=== PATIENT | female | born 1950 | race Hispanic/Latino ===

== ENCOUNTER → 2017-12-05 | Outpatient (CLI) | payer OTHER ==
[~2017-12-05] MED LIST: AMLO5TAB7 PO; ASPI-555 PO; ATEN100T PO; CLOP75TA32 PO; LOSA100T20 PO; METF-444 PO; PRAV40TA3 PO
== END | disposition home or self-care (01) ==
LOC: SHCH 14:37
PROVIDERS: ATTEND Internal Medicine Cardiovascular Disease
DX: I73.9 Peripheral vascular disease, unspecified (principal); R09.89 Other specified symptoms and signs involving the circulatory and respiratory systems; E11.9 Type 2 diabetes mellitus without complications; Z72.89 Other problems related to lifestyle
CPT/HCPCS: 93880; 93925

== ENCOUNTER → 2018-12-07 | Outpatient (CLI) | payer OTHER ==
[~2018-12-07] MED LIST changes: -AMLO5TAB7 PO; +AMLO5TAB9 PO; -LOSA100T20 PO; +LOSA100T58 PO
== END | disposition home or self-care (01) ==
LOC: SHCH 09:32
PROVIDERS: ATTEND Internal Medicine Cardiovascular Disease
DX: I87.2 Venous insufficiency (chronic) (peripheral) (principal)
CPT/HCPCS: 93925; 93970

== ENCOUNTER → 2022-01-12 | Outpatient (CLI) | payer MEDICARE ==
[~2022-01-12] MED LIST changes: +AMLO-257 PO; -AMLO5TAB9 PO; -ASPI-555 PO; +ASPI-556 PO
== END | disposition home or self-care (01) ==
LOC: SHCH 12:36
PROVIDERS: ATTEND Internal Medicine Cardiovascular Disease
DX: I87.2 Venous insufficiency (chronic) (peripheral) (principal); I73.9 Peripheral vascular disease, unspecified
CPT/HCPCS: 93925; 93970

== ENCOUNTER → 2022-11-29 | Outpatient (CLI) | payer MEDICARE ==
[~2022-11-29] MED LIST changes: -LOSA100T58 PO; +LOSA100T59 PO
== END | disposition home or self-care (01) ==
LOC: SHCH 08:16
PROVIDERS: ATTEND Internal Medicine Cardiovascular Disease
DX: I11.9 Hypertensive heart disease without heart failure (principal); R00.2 Palpitations; E11.9 Type 2 diabetes mellitus without complications; E78.5 Hyperlipidemia, unspecified; F17.200 Nicotine dependence, unspecified, uncomplicated
CPT/HCPCS: 93306

== ENCOUNTER 2023-12-10 22:34 | Emergency (ER) | payer MEDICARE ==
[~2023-12-10] VITALS: Ht 157.5 cm; Wt 67.1 kg
[2023-12-10 22:51] LABS: BASOPHILS # (AUTO) 0.09 K/uL (0.00-0.20); BASOPHILS % (AUTO) 1.1 % (0.0-5.0); EOSINOPHILS # (AUTO) 0.21 K/uL (0.00-0.70); EOSINOPHILS % (AUTO) 2.5 % (0.0-8.0); HEMATOCRIT 43.7 % (36-48); IMMATURE GRANULOCYTE ABSOLUTE 0.04 K/uL (0-1); LYMPHOCYTES # (AUTO) 3.3 K/uL (1.0-4.8); LYMPHOCYTES % (AUTO) 38.6 % (21.0-51.0); MEAN CORPUSCULAR HEMOGLOBIN 29.6 pg (27.0-33.0); MEAN CORPUSCULAR HGB CONC 33.6 g/dL (32.0-36.0); MEAN CORPUSCULAR VOLUME 87.9 fL (79-99); MONOCYTES # (AUTO) 0.8 K/uL (0.1-1.0); MONOCYTES % (AUTO) 8.9 % (3.0-13.0); NEUTROPHILS # (AUTO) 4.1 K/uL (1.8-7.7); NEUTROPHILS % (AUTO) 48.4 % (40.0-77.0); PLATELET COUNT (AUTO) 298 K/uL (130-400); RED BLOOD CELL COUNT(AUTO) 4.97 MIL/uL (4.00-5.50); RED CELL DISTRIBUTION WIDTH 11.9 % (11.0-15.5); WHITE BLOOD COUNT (AUTO) 8.4 K/uL (4.8-10.8)
[2023-12-10 23:03] LABS: CREATININE 1.2 mg/dL (0.5-1.0); POTASSIUM 3.7 mmol/L (3.5-5.1); PROTHROMBIN TIME 10.8 SEC (9.6-11.6)
[2023-12-10 23:05] LABS: PARTIAL THROMBOPLASTIN TIME 25.6 SEC (26.3-35.5)
[2023-12-10] MEDS: MAG/ALUM/SIMETH 30 ML UDCUP PO ONE (23:11)
[2023-12-10] MEDS: DICYCLOMINE HCL 10 MG/5 ML ML PO ONE (23:11)
[2023-12-10 23:17] LABS: B-TYPE NATRIURETIC PEPTIDE 50 pg/mL (0-100)
[2023-12-10 23:21] LABS: ALBUMIN 3.7 g/dL (3.5-5.0); BILIRUBIN,DIRECT 0.1 mg/dL (0.0-0.3); BILIRUBIN,TOTAL 0.3 mg/dL (0.2-1.0); TOTAL PROTEIN, SERUM 7.6 g/dL (6.0-8.3)
[2023-12-10 23:50] LABS: ADD UA MICROSCOPIC YES; APPEARANCE,URINE CLEAR (CLEAR); BILIRUBIN,URINE NEGATIVE (NEGATIVE); COLOR,URINE COLORLESS (YELLOW); GLUCOSE, URINE (UA) >=1000 mg/dL (NEGATIVE); KETONES,URINE NEGATIVE (NEGATIVE); LEUKOCYTE ESTERASE ,URINE 250 Leu/uL (NEGATIVE); NITRATE,URINE NEGATIVE (NEGATIVE); PH,URINE 6.5 (5.0-8.0); PROTEIN,URINE NEGATIVE (NEGATIVE); UROBILINOGEN,URINE 0.2 mg/dL (0.2-1.0)
[2023-12-10 23:51] LABS: BACTERIA,URINE FEW /HPF (None Seen); MUCUS,URINE RARE LPF (None Seen); SQUAMOUS EPITHELIAL CELL,UR RARE /HPF (0-2)
[2023-12-10] MEDS ORDERED: IOHEXOL-350 75 ML VIAL IV ONE (23:53)
[2023-12-11] MEDS ORDERED: FAMO20TA8 PO (01:33)
[2023-12-11 01:40] VITALS: BP 135/68; PULSE 66; RESP 20; TEMP 97.5; O2SAT 96
== END 2023-12-11 01:42 | disposition home or self-care (01) ==
LOC: EDH 22:34
DX: R10.13 Epigastric pain (principal); E11.9 Type 2 diabetes mellitus without complications; I10 Essential (primary) hypertension; E78.5 Hyperlipidemia, unspecified; Z79.82 Long term (current) use of aspirin; Z79.84 Long term (current) use of oral hypoglycemic drugs; Z79.899 Other long term (current) drug therapy; Z95.5 Presence of coronary angioplasty implant and graft; Z98.890 Other specified postprocedural states
CPT/HCPCS: 99285; 74177; 71045; 82550; 80076; 84484 ×3; 80048; 83880; 83690; 85025; 85610; 85730; 87086; 81001; 36415; 93005; Q9967

== ENCOUNTER 2024-02-28 06:29 | Observation (INO) | payer MEDICARE ==
--- NOTE | 2024-02-24 09:03 | EKG ---
[facility] Test Date: 2024-02-24 Test Time: 09:33:04 Pat Name: BERNIE WOOD Department: [facility] Room: Gender: F Training And Development Professional: [id number] : 1950 Requested By: REBECCA MILLER Order Number: [id number] Reading MD: Parish De La Rosa Measurements Intervals [place] Rate: 58 P: 33 [place]: 153 QRS: 30 QRSD: 96 T: -61 QT: 448 QTc: 442 Interpretive Statements Sinus rhythm Atrial premature complex Inferior infarct, age indeterminate Nonspecific STT abnormality Compared to ECG 12/26/2023 07:21:53 Atrial premature complex(es) now present Junctional rhythm no longer present ST (T wave) deviation no longer present Myocardial infarct finding still present Electronically Signed On 02-25-2024 07:59:21 SENIOR ERP CONSULTANT by Parish De La Rosa Please click the below link to view image of tracing.
[2024-02-24 09:04] LABS: BASOPHILS # (AUTO) 0.08 K/uL (0.00-0.20); BASOPHILS % (AUTO) 1.3 % (0.0-5.0); EOSINOPHILS # (AUTO) 0.17 K/uL (0.00-0.70); EOSINOPHILS % (AUTO) 2.7 % (0.0-8.0); HEMATOCRIT 41.5 % (36-48); IMMATURE GRANULOCYTE ABSOLUTE 0.02 K/uL (0-1); LYMPHOCYTES # (AUTO) 1.5 K/uL (1.0-4.8); LYMPHOCYTES % (AUTO) 23.8 % (21.0-51.0); MEAN CORPUSCULAR VOLUME 87.4 fL (79-99); MONOCYTES # (AUTO) 0.5 K/uL (0.1-1.0); MONOCYTES % (AUTO) 7.4 % (3.0-13.0); NEUTROPHILS # (AUTO) 4.1 K/uL (1.8-7.7); NEUTROPHILS % (AUTO) 64.5 % (40.0-77.0); PLATELET COUNT (AUTO) 343 K/uL (130-400); RED BLOOD CELL COUNT(AUTO) 4.75 MIL/uL (4.00-5.50); RED CELL DISTRIBUTION WIDTH 12.6 % (11.0-15.5); WHITE BLOOD COUNT (AUTO) 6.4 K/uL (4.8-10.8)
[2024-02-24 09:15] LABS: INR 0.96 (0.85-1.15); PROTHROMBIN TIME 10.8 SEC (9.6-11.6)
[2024-02-24 09:17] LABS: PARTIAL THROMBOPLASTIN TIME 25.9 SEC (26.3-35.5)
[2024-02-24 09:19] LABS: ALBUMIN 3.4 g/dL (3.5-5.0); BILIRUBIN,TOTAL 0.2 mg/dL (0.2-1.0); CREATININE 0.9 mg/dL (0.5-1.0); POTASSIUM 4.1 mmol/L (3.5-5.1)
[2024-02-24 09:22] VITALS: BP 139/53; PULSE 59; RESP 14; TEMP 97.2
--- NOTE | 2024-02-24 11:06 | HMCIMG ---
CHEST 1VW REASON: PRE OP COMPARISON: 12/25/2023 FINDINGS: Single view of the chest was obtained. Lungs are clear. Heart size is normal. There is no pulmonary vascular congestion. Mediastinum and bony thorax appear unremarkable. IMPRESSION: 1. Normal single view chest x-ray.
[2024-02-28] VITALS (8 sets, daily range): BP systolic 118–151; BP diastolic 48–62; PULSE 45–59; RESP 14–18; TEMP 97.3–98.1; O2SAT 92–96
[~2024-02-28] VITALS: Ht 154.9 cm; Wt 66.3 kg
[~2024-02-28 06:29] MED LIST changes: +ACET-2743 PO; -AMLO-257 PO; +AMLO-258 PO; -ATEN100T PO; +ATEN50TA PO; +EMPA10TA PO; +FENO145T26 PO; +Isosorbide Mono 30MG Sr Tab PO; -METF-444 PO; +METF-445 PO; +NITR0.4T50 SL
[2024-02-28] MEDS: 0.9%NACL 1000ML 1,000 ML IV SCH ×2 (12:20→17:00)
[2024-02-28] MEDS ORDERED: LIDOCAINE HCL 400MG/20ML VIAL ONE (14:08)
[2024-02-28] MEDS ORDERED: HEParin 10,000 UNIT/10ML (1,000 UNIT/ML) VIAL ONE (14:08)
[2024-02-28] MEDS ORDERED: IOHEXOL 350 MG/ML 100ML INFUS..BTL IV ONE (14:08)
[2024-02-28] MEDS ORDERED: HEParin-NS 1,000 UNIT/500 ML 1,000 ML IV ONE (14:08)
[2024-02-28] MEDS ORDERED: BIVALIRUDIN 250 MG/VIAL IV ONE (14:08)
[2024-02-28] MEDS ORDERED: NITROGLYCERIN 50MG VIAL ONE (14:09)
[2024-02-28] MEDS ORDERED: FENTanyl CITRate PF 50 MCG/1 ML 2ML VIAL ONE (14:24)
[2024-02-28] MEDS ORDERED: MIDAZOLAM HCL 1 MG/ML 2ML VIAL ONE (14:24)
[2024-02-28] MEDS ORDERED: ATROPINE 1MG SYG IVP ONE (15:03)
[2024-02-28] MEDS ORDERED: morPHINE 4 MG SYG ONE (15:19)
--- NOTE | 2024-02-28 16:15 | PRN ---
PROCEDURES: 1. Right common femoral arterial sheath placement. 2. Selective coronary angiogram. Three. Angioplasty to obtuse marginal branch three with a 2.5 mm x 15 mm balloon 4. Lithotripsy angioplasty to obtuse marginal branch three with the use of a 2.5 mm x 12 mm balloon up to four treatments at four atmospheres Five. Lithotripsy angioplasty to proximal mid left circumflex with a 2.5 mm x 12 mm lithotripsy balloon x4 treatments Six. Angioplasty only to interventricular groove with a 2.5 mm x 15 mm balloon to 2.5 mm Seven. 2.5 mm x 22 mm stent placement to distal left circumflex extending into obtuse marginal branch 3. Deployed to 2.5 mm Eight. 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 IV was started, and not already in place and both groins were exposed for arterial access. 1% lidocaine was used for local anesthesia and then a micropuncture kit was used to gain access once free-flowing blood was seen, modified Seldinger technique was utilized to place a 6 Cypriot sheath into the right common femoral artery. Next a six Cypriot Jose 3.5 guide catheter was placed in the left main artery and initially a choice PT extra-support wire was placed in the distal ongoing obtuse marginal branch 3. And then a 0.014 in runthrough wire was placed in the distal ongoing interventricular groove left circumflex. Next a 2.5 mm x 15 mm balloon was then placed into the distal left circumflex and interventricular groove portion employed to 2.5 mm for approximately 1 minute with 95% stenosis being less than 20%. TRUDY three flow was noted. Next at Saint balloon was then used to prepare obtuse marginal branch three and distal left circumflex for lithotripsy and was advanced to obtuse marginal branch 3. Deployed to 2.5 by mm. Brought back in overlapping fashion to the ostium and proximal portion of left obtuse marginal branch three and into the distal portion of left circumflex and deployed. Next a lithotripsy balloon was then placed into the ostium and proximal portion of obtuse marginal branch 3. And deployed for a total of four treatments at four atmospheres. This was then brought back to the proximal mid and distal left circumflex and deployed for four more treatments. Next a GuideLiner was used for support and a 2.5 mm x 22 mm Medtronic resolute allyson stent was then placed into obtuse marginal branch 3. In the proximal and mid segment and the distal portion of the left circumflex. This was deployed to 2.55 mm. Next a 2.75 mm x 22 mm resolute allyson stent was placed in an overlapping fashion with the previously placed stent and deployed to 2.80 mm out to the ostium. Follow-up contrast injection was performed revealing no evidence of dissection or perforation with TRUDY three flow noted. At end of case Vascade was used for closure of arteriotomy site and no complications occurred. RECOMMENDATIONS: Patient will stay in the hospital overnight for IV hydration Reinitiate home medications Placed in PCCU Plan for DC in REBECCA Roberts MD Feb 28, 2024 16:15
[2024-02-28] MEDS ORDERED: ASPIRIN 325MG EC TAB PO ONE (16:19)
[2024-02-28] MEDS: INSULIN humuLIN R 100 UNIT/ML 3ML SQ SCH (16:30)
[2024-02-28] MEDS ORDERED: NITROGLYCERIN 0.4 MG SL TAB SL PRN (16:30)
[2024-02-28] MEDS ORDERED: DEXTROSE 50%-WATER 50 ML DISP.SYRIN IV PRN (16:30)
[2024-02-28] MEDS ORDERED: GLUCAGON 1MG KIT 1 MG ML IM PRN (16:30)
--- NOTE | 2024-02-28 22:51 | NUR ---
[id number] PATIENT EDUCATED REGARDING SAFETY IN THE HOSPITAL AND FALL PRECAUTIONS. PATIENT REFUSED BED ALARM AND SIGNED REFUSAL DOCUMENT. KARYN TYLER AND NURSE JESSICA EDUCATED AND ATTEMPTED TO REDIRECT PATIENT BUT PATIENT CONTINUED TO REFUSE BED ALARM. PATIENT STATED SHE SUFFERED A FALL AT HOME IN DECEMBER. SIGNED REFUSAL FORM IN CHART AND PATIENT EDUCATED REGARDING USE OF CALL LIGHT, VERBALIZED UNDERSTANDING REGARDING SAFETY AND RISKS ASSOCIATED WITH BED ALARM BEING OFF.
--- NOTE | 2024-02-28 23:56 | NUR ---
PATIENT HAS HAD TROUBLE SLEEPING OVER LAST COUPLE OF NIGHTS, ASKED RT TO DEFER TREATMENT TO LATER TIME WHEN PATIENT IS AWAKE DUE TO PATIENT SLEEPING.
[2024-02-29 00:52] VITALS: BP 123/52; PULSE 49; RESP 18; TEMP 97.8
[2024-02-29 04:20] VITALS: BP 118/44; PULSE 55; RESP 18; TEMP 98.6
[2024-02-29 08:00] VITALS: O2SAT 93
[2024-02-29] MEDS: cloPIDOgrel 75MG TAB PO SCH (08:29)
[2024-02-29] MEDS: ASPIRIN 81MG CHEW TAB PO SCH (08:29)
[2024-02-29 08:51] VITALS: BP 127/72; PULSE 53; RESP 18; TEMP 97.9
[2024-02-29 10:00] LABS: CREATININE 0.9 mg/dL (0.5-1.0); POTASSIUM 3.6 mmol/L (3.5-5.1)
--- NOTE | 2024-02-29 10:00 | NUR ---
NOTE DISCHARGE INSTRUCTIONS GIVEN TO PATIENT, SHE STATED UNDERSTANDING, ALL QUESTIONS ANSWERED.
== END 2024-02-29 10:36 | disposition home or self-care (01) ==
LOC: DAH 06:29 → DAHIP 06:30 → DAH 06:30 → 2AH 16:35
PROVIDERS: ADMIT Internal Medicine Cardiovascular Disease; ATTEND Internal Medicine Cardiovascular Disease
DX: I21.21 ST elevation (STEMI) myocardial infarction involving left circumflex coronary artery (principal); I21.9 Acute myocardial infarction, unspecified; I25.10 Atherosclerotic heart disease of native coronary artery without angina pectoris; I11.9 Hypertensive heart disease without heart failure; I87.1 Compression of vein; I87.2 Venous insufficiency (chronic) (peripheral); J44.9 Chronic obstructive pulmonary disease, unspecified; E11.51 Type 2 diabetes mellitus with diabetic peripheral angiopathy without gangrene; E05.90 Thyrotoxicosis, unspecified without thyrotoxic crisis or storm; E78.5 Hyperlipidemia, unspecified; F17.210 Nicotine dependence, cigarettes, uncomplicated; Z88.8 Allergy status to other drugs, medicaments and biological substances; Z79.899 Other long term (current) drug therapy
CPT/HCPCS: 80053; 85025; 85610; 85730; 36415 ×2; 71045; 93005; 92972; 82948 ×2; 80048; C1769 ×2; C1887 ×2; C1894 ×2; C1725; C1874 ×2; C1760; C1761; Q9965 ×2; G0378 ×18; J3010; J3490 ×2; J7030; J0461; J2250; J2270; J1644; J0583; Q9967; A4215; A4223 ×3; A4222; A4221; A4663; A4216; A4606; C9600; C9601; 99156; 99157